=== PATIENT | female | born 1960 | race Caucasian/White ===

== ENCOUNTER 2019-04-08 23:11 | Outpatient (CLI) | payer OTHER ==
--- NOTE | 2019-04-09 03:17 | Ultrasound Report ---
Reason: LOWER ABD PAIN Procedure Date: 04/08/2019 Accession Number: [id number] / [id number] Procedure: US - Abdomen Complete CPT Code: Final Report FULL RESULT: EXAM: ABDOMEN ULTRASOUND EXAM DATE: 04/08/2019 11:59 PM. CLINICAL HISTORY: LOWER ABD PAIN. Nausea and vomiting. COMPARISON: None. TECHNIQUE: Real-time scanning was performed with static images obtained. Technically limited due to bowel gas and body habitus. FINDINGS: Liver: Diffusely increased in echotexture and increased in size measuring 23.0 cm. Main portal vein flow: Hepatopetal. Gallbladder: Normal. No stones, wall thickening, or sonographic Ortega's sign. Biliary System: Common bile duct measures 5 mm. No intrahepatic or extrahepatic ductal dilatation. Pancreas: Visualized portion is unremarkable. Kidneys: Right: 12.8 cm longitudinally. Normal. No contour-deforming mass, stones, or hydronephrosis. Left: 12.6 cm longitudinally. Normal. No contour-deforming mass, stones, or hydronephrosis. Spleen: 10.7 cm. Normal in size and echotexture. Aorta and Inferior Vena Cava: Unremarkable. Other: None. IMPRESSION: Hepatomegaly and increased echotexture of the liver which may reflect hepatic steatosis. No acute process seen. RADIA
== END 2019-04-08 23:12 | disposition home or self-care (01) ==
LOC: DI 23:11
DX: R16.0 Hepatomegaly, not elsewhere classified (principal); R10.30 Lower abdominal pain, unspecified
CPT/HCPCS: 76700

== ENCOUNTER 2019-07-29 08:16 | Outpatient (CLI) | payer OTHER ==
--- NOTE | 2019-07-29 09:27 | Ultrasound Report ---
Reason: POSTMEN BLEEDING Procedure Date: 07/29/2019 Accession Number: [id number] / [id number] Procedure: US - Pelvic w/Transvaginal CPT Code: Final Report FULL RESULT: PROCEDURE: Pelvic w/Transvaginal INDICATIONS: POSTMEN BLEEDING TECHNIQUE: Real-time scanning was performed of the pelvic organs, with image documentation. Additional endovaginal scanning was necessary due to incomplete visualization of the adnexal and endometrial structures by transabdominal scanning. COMPARISON: Ultrasound abdomen 04/08/2019. FINDINGS: Transabdominal scanning: Limited scanning through the kidneys shows no hydronephrosis. No pathologic free abdominal or pelvic fluid. Endovaginal scanning: Uterus: Uterus is normal in size at 6.7 x 2.6 x 4.2 cm. The endometrium measures 7 mm in combined thickness. It is mildly heterogeneous in appearance. Ovaries: Right ovary measures 23 x 17 x 20 mm. Arterial and venous flow are identified. Left ovary is not visualized. IMPRESSION: Mildly thickened, heterogeneous appearance of the endometrium, greater than expected in a postmenopausal patient with bleeding. 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 Reviewed by: Sherron Nguyen MD on 07/29/2019 9:25 AM PDT Approved by: Sherron Nguyen MD on 07/29/2019 9:25 AM PDT Station ID: [id number]
== END 2019-07-29 08:17 | disposition home or self-care (01) ==
LOC: DI 08:16
PROVIDERS: ATTEND Family Medicine
DX: R93.89 Abnormal findings on diagnostic imaging of other specified body structures (principal)
CPT/HCPCS: 76830; 76856

== ENCOUNTER 2020-11-01 14:20 | Outpatient (CLI) | payer OTHER ==
--- NOTE | 2020-11-02 10:55 | Ultrasound Report ---
PROCEDURE: Pelvic w/Transvaginal INDICATIONS: POST MENOPAUSAL BLEEDING TECHNIQUE: Real-time scanning was performed of the pelvic organs, with image documentation. Additional endovagi nal scanning was necessary due to incomplete visualization of the adnexal and endometrial structures by transabdominal scanning. COMPARISON: Pelvic ultrasound with stress vaginal exam, 07/29/2019. FINDINGS: No pathologic free abdominal or pelvic fluid. Uterus: Uterus is anteverted measuring 8.5 x 3.0 x 5.1 cm. The endometrium measures 4.9 mm in combi ina thickness. There is an IUD in place. Ovaries: Right ovary measures 2.6 x 1.4 x 1.7 cm with an estimated volume of 3.2 mL. Left ovary samuel ures 2.5 x 1.6 x 1.6 cm with an estimated volume of 3.2 mL. There is a 1.6 x 1.1 x 1.1 cm echogenic f ocus in the right ovary, which was not visualized on the last exam. IMPRESSION: 1. The endometrium is at upper limits of normal in thickness for a postmenopausal woman. 2. A 1.6 x 1.1 x 1.1 cm echogenic focus in the right ovary, probably a hemorrhagic cyst. A follow-up ultrasound is suggested in 6 weeks. Reviewed by: Ivette Potts MD on 11/02/2020 10:54 AM PDT Approved by: Ivette Potts MD on 11/02/2020 10:54 AM PDT Station ID: [id number]
== END 2020-11-01 14:21 | disposition home or self-care (01) ==
LOC: DI 14:20
PROVIDERS: ATTEND Family Medicine
DX: N95.0 Postmenopausal bleeding (principal); R93.89 Abnormal findings on diagnostic imaging of other specified body structures

== ENCOUNTER 2021-01-21 13:12 | Outpatient (CLI) | payer OTHER ==
--- NOTE | 2021-01-22 08:19 | Mammography Report ---
BILATERAL DIGITAL SCREENING MAMMOGRAM 3D/2D: 01/21/2021 CLINICAL: Baseline exam. Routine screening. No prior exams were available for comparison. The tissue of both breasts is heterogeneously dense. T his may lower the sensitivity of mammography. There is an oval equal density mass with a circumscribed margin in the right breast at 11 o'clock ant erior depth. No other significant masses, calcifications, or other findings are seen in either breast. IMPRESSION: INCOMPLETE: NEEDS ADDITIONAL IMAGING EVALUATION The oval equal density mass in the right breast is indeterminate. Mediolateral and spot compression views as well as additional views with possible ultrasound are recommended. This exam was interpreted at Station ID: [id number]. NOTE: For mammograms, a report in lay terms will be sent to the patient. Approximately 15% of breast malignancies will not be visualized mammographically. In the management of a palpable breast mass, a negative mammogram must not discourage biopsy of a clinically suspicious lesion. Electronically Signed By: João Fowler M.D. ddp/penrad:01/21/2021 15:30:04 ACR BI-RADS Category 0: Incomplete 3340F PARENCHYMAL PATTERN: (D) - The breast(s) demonstrate(s) heterogeneously dense fibroglandular parenchy ma. BI-RADS CATEGORY: (0) - 0 Mammo and US [id number] Immediate follow-up LATERALITY: (B)
== END 2021-01-21 13:13 | disposition home or self-care (01) ==
LOC: DI 13:12
DX: Z12.31 Encounter for screening mammogram for malignant neoplasm of breast (principal); R92.8 Other abnormal and inconclusive findings on diagnostic imaging of breast

== ENCOUNTER 2021-04-02 09:51 | Outpatient (CLI) | payer OTHER ==
--- NOTE | 2021-04-02 13:31 | Ultrasound Report ---
PROCEDURE: Pelvic w/Transvaginal INDICATIONS: POST MENOPAUSAL BLEEDING TECHNIQUE: Real-time scanning was performed of the pelvic organs, with image documentation. Additiona l endovaginal scanning was necessary due to incomplete visualization of the adnexal and endometrial s tructures by transabdominal scanning. COMPARISON: Pelvic ultrasound, 07/29/2019 and 11/01/2020. FINDINGS: Uterus: Uterus is normal in size measuring 7.2 x 3.0 x 5.0 cm. Uterus demonstrates coarse echotexture . Endometrium measures 7.1 mm in thickness. Ovaries: Right ovary measures 2.2 x 1.1 x 1.9 cm with an estimated volume of 2.4 cc. Left ovary measu res 1.8 x 1.2 x 1.4 cm with an estimated volume of 1.5 cc. There is a 0.9 x 0.8 x 1.0 cm cyst in the right ovary, decreased in size compared to last exam (previously 1.6 x 1.1 x 1.1 cm on 11/01/2020). IMPRESSION: 1. Endometrium is thickened measuring 7.1 mm for a postmenopausal woman. Differential diagnoses inclu de endometrial hyperplasia versus endometrial carcinoma. In this patient with postmenopausal bleeding , recommend tissue diagnosis. 2. There is a involuting cyst in the right ovary, decreased in size since the last exam. Reviewed by: Ivette Potts MD on 04/02/2021 1:30 PM PST Approved by: Ivette Potts MD on 04/02/2021 1:30 PM PST Station ID: [id number]
== END 2021-04-02 09:52 | disposition home or self-care (01) ==
LOC: DI 09:51
PROVIDERS: ATTEND Family Medicine
DX: N95.0 Postmenopausal bleeding (principal); N83.201 Unspecified ovarian cyst, right side; R93.89 Abnormal findings on diagnostic imaging of other specified body structures

== ENCOUNTER 2021-07-12 15:57 | Outpatient (CLI) | payer OTHER ==
--- NOTE | 2021-07-12 16:48 | SLEEP CARE CONSULTATION ---
Information from patient questionnaire entered by Abhijit Shah MA. I have reviewed and concur with the information entered by Abhijit Shah MA. This document represents the service I personally performed and the decisions made by , Amy Salas ARNP. History of Present Illness Service Date and Time: 07/12/2021 1557 Reason for Visit: New patient (ONSET 02/23/2006, ON CPAP, RESMED, ), Other (needs new equiptment) Date of Onset: years Usual bedtime: depends Time it takes to fall asleep: depends Snores at night: No Observed to quit breathing while asleep: No Sleeps alone due to snoring: No Number of times waking at night: pending dogs Reasons for waking at night: reports: Pain, Bathroom Toss, Turn, or Twitch while sleeping: Yes Usually gets out of bed at: [id number] Feels refreshed in the morning: No Morning headache: No Sleepy or fatigued during the day: Yes Ever fallen asleep while driving: No Takes day naps: No Dreams during day naps: No Prior sleep studies: Yes Year and Where: [facility] sleep [place] 2003 Type of Sleep Study: Polysomnography Additional HPI information: CAMI LUJAN was previously diagnosed to have moderate, AHI 23.5, obstructi ve sleep apnea-hypopnea syndrome and comes in today to establish care for CPAP therapy. Patient had a sleep study in 2003 at [facility] ([facility]) and we were able to obtain a copy of that sleep study from her [employer] company. - Parasomnia Symptoms Ever been unable to move upon waking from sleep: No Walks in sleep: No Talks in sleep: Yes Ever acted out dreams in sleep: Yes Ever felt weak in the knees when startled or emotional: No Bothered by creepy, crawly, restless sensations in legs: Yes Problems with memory or concentration: Yes CPAP Compliance Data - Data Reviewed with Patient Average duration of nightly device use: 9 hours 45 minutes Compliance rate %: 100 (180 days; used 180/180) Current pressure setting (cmH2O): 13 Average residual AHI: 1.4 Central apnea: 0.0 Obstructive apnea: 1.0 Average large leak: 16.7 L/min Compliance data discussion: She has been using [employer] for her supplies but has not gotten any new supplies in last couple years. She has been using nasal pillows mask, ResMed P10. She states she cannot sleep without it. She does not change the cushion very often. Subjective Patient concerns: denies: aerophagia, mask discomfort, air blowing in eyes, mask leak noise, condensation in mask/hose, nasal congestion, dry mouth, nose, throat, epistaxis, other Observed to snore while using device: No Current pressure setting perceived as: comfortable On therapy, patient: reports: sleeping better, awakening more refreshed, being more awake and alert during the day, more rested overall. denies: drowsiness while driving Initial [place] Sleepiness Scale score: 2 (06/2021) Past Medical History Past Medical History: reports: Diabetes, Arthritis, Insulin resistance, Hypothyroidism, Anxiety, Depression Social History The patient's occupation is a [employer]. Patient is and lives in . Have you smoked in the past 12 months: No Cigarettes per day (20/pack): 10 Quit date: 4 years Alcohol use: Yes Alcohol amount and frequency: 2 x weekly Caffeine use: Yes Caffeine amount and frequency: 1-2 daily Family History Family history of sleep disordered breathing: No Family Hx Sleep Apnea: Father: Snoring, Sibling: Snoring Allergies and Home Medications Drug allergies reviewed: Yes (tetracycline) Home medication list reviewed: Yes Allergy and home medication list: Allergies No Known Drug Allergies Allergy (Verified 11/26/20 15:25) Medications: Venlafaxine, total 375 mg a day Atorvastatin Tylenol #3 Levothyroxine Metformin Victoza Ibuprofen, prn Empagliflozin Cyclobenzaprine, prn Clobetasol 0.05% external solution, prn Review of Systems Weight gain over past 5 years: 20 lbs in last 1.5 yrs Cardiovascular: denies: high blood pressure Gastrointestinal: reports: abdominal pain (hernia; has had 2 surgeries, may be torn again). denies: heartburn Urinary: reports: incontinence Neurological: denies: headaches Psychiatric: reports: anxiety, depression Ear/Nose/Throat: reports: tonsillectomy, wisdom teeth removed Endocrine: reports: thyroid disease Musculoskeletal: reports: joint pain (torn rotator cuffs bilateral; 3 repairs on right side) Physical Exam Vital signs obtained and entered by: Coleen SHAH CMA [facility] Blood Pressure: 126/76 (resp 16, pulse 75, right, ) Heart Rate: 77 O2 Saturation: 96 (n95) Height: 5 ft 6 in Weight: 256 lb Body Mass Index: 41.3 BMI Classification: Morbidly Obese Neck circumference: 15.5 (inches) Heart: regular rate and rhythm Lungs: clear bilaterally Impression and Plan 1. Obstructive Sleep Apnea-Hypopnea Syndrome, moderate, with excellent treatment compliance and good apnea control. On CPAP therapy, the patient has better sleep quality and is more rested overall. Patient denies problems with oral dryness, nasal congestion, epistaxis, skin irritation or aerophagia. Patient does need to be able to get supplies. She has not been able to get some for a long time but she has dealt with [facility] in the past. I will write a prescription to update supplies and we will fax this to her DME. Patient is compliant and will follow up we will follow up with her next year. Patient voiced understanding and agreement. Patient's apnea severity and rationale for treatment to reduce apnea, improve sleep quality and reduce cardiovascular and cerebrovascular events was reviewed. I also reviewed the benefit of consistent device use of CPAP for diabetes, depression and anxiety. 2. Obesity, unspecified. Currently patients BMI is 41.3. Obesity increases the risk of apnea, CPAP pressure requirements and overall health risks especially cardiovascular and diabetes. Thus patient is advised to lose weight. Weight loss can be done with reducing portion size, reducing refined foods and balancing content with vegetables, fruit and whole grain foods. In addition, patient encouraged to get regular exercise. The patient's CPAP pressure range should accommodate some weight loss. * Continue auto CPAP pressure at 13 cmH2O * Update supplies * Notify me if snoring with mask or feeling that the pressure is too much or too little * Attempt to lose weight * Call this office if any problems using CPAP * Return for follow up in 1 year, or sooner if concerns arise Counseling Topics: Spare mask, Weight loss health impact Visit Type: In Office Time Spent with Patient (minutes): 43 Provider Statement: I spent 100% of the Face to Face Visit with the patient with greater than 50% spent counseling the patient and coordination of care.
[2021-07-12 16:49] VITALS: BP 126/76
== END 2021-07-12 15:58 | disposition home or self-care (01) ==
LOC: SC 15:57
PROVIDERS: ATTEND Nurse Practitioner Family
DX: G47.33 Obstructive sleep apnea (adult) (pediatric) (principal); E66.01 Morbid (severe) obesity due to excess calories; Z68.41 Body mass index [BMI] 40.0-44.9, adult
CPT/HCPCS: 99203; 99212

== ENCOUNTER 2022-08-14 09:31 | Outpatient (CLI) | payer OTHER ==
--- NOTE | 2022-08-14 09:58 | SLEEP CARE CONSULTATION ---
Information from patient questionnaire entered by Malcolm Kaye. I have reviewed and concur with the information entered by Malcolm Kaye. This document represents the service I personally performed and the decisions made by me, Amy Salas ARNP. History of Present Illness Service Date and Time: 08/14/2022 0931 Previous diagnosis: Moderate, Obstructive Sleep Apnea-Hypopnea Syndrome AHI: 23.5 (in 2003) Reason for follow up: annual (LAST SEEN 06/2021) Equipment type: CPAP (RESMED 10, s/u 07/16/2017) Equipment obtained from: Other ([facility], has not got any calls/supplies this last year) Mask style: Nasal pillows Backup mask available: No (needs to get supplies) Last cushion change: 1 year Prior sleep studies: Yes Year and Where: [facility] sleep [place] 2003 Type of Sleep Study: Polysomnography HPI additional information: CAMI LUJAN was diagnosed to have moderate, AHI 23.5, obstructive sleep apnea-hypopnea syndrome and returned today for CPAP therapy annual follow-up. 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 denies: aerophagia, mask discomfort, mask leak noise, nasal congestion, dry mouth, nose, throat, epistaxis Observed to snore while using device: No Current pressure setting perceived as: comfortable On therapy, patient: reports: sleeping better, awakening more refreshed, being more awake and alert during the day, more rested overall. denies: drowsiness while driving Initial [place] Sleepiness Scale score: 2 (06/2021) Current [place] Sleepiness Scale score: 1 (08/14/22) Allergies and Home Medications Known drug allergies: No Drug allergies reviewed: Yes Home medication list reviewed: Yes (started Trulicity; stopped Victoza and Jardiance) Allergy and home medication list: Allergies No Known Drug Allergies Allergy (Verified 08/13/22 16:10) Review of Systems Review of systems same as previous: Yes (osteoarthritis) Physical Exam Vital signs obtained and entered by: MALCOLM Partida MA Blood Pressure: 134/76 (LEFT ARM) Cuff size: long Heart Rate: 83 O2 Saturation: 98 Height: 5 ft 6 in Weight: 259 lb 3.2 oz Weight change since last visit: 3 lb gain Body Mass Index: 41.8 BMI Classification: Morbidly Obese Impression and Plan 1. Obstructive Sleep Apnea-Hypopnea Syndrome, moderate, with good treatment compliance and good apnea control. On CPAP therapy, the patient has better sleep quality and is more rested overall. Patient has significant improvement of their sleep apnea and is satisfied with current CPAP therapy. Patient has a ResMed air sense 10 that she received in June 2017. She is eligible to update her device. The patients CPAP is over 5 years old and of reasonable use. Thus, the CPAP will be updated. A DWO prescription will be made. Compliance guidelines for new device and follow up discussed. Patient's apnea severity and rationale for treatment to reduce apnea, improve sleep quality and reduce cardiovascular and cerebrovascular events was reviewed. I also reviewed the benefit of consistent device use of CPAP for diabetes, depression and anxiety. 2. Obesity, unspecified. Currently patients BMI is 41.8. Obesity increases the risk of apnea, CPAP pressure requirements and overall health risks especially cardiovascular and diabetes. Thus patient is advised to lose weight. * Continue CPAP pressure at 13 cmH2O * Update device * Update supply prescription * Notify me if snoring with mask or feeling that the pressure is too much or too little * Attempt to lose weight * Call this office if any problems using CPAP * Return for follow up one month after obtaining new device, or sooner if concerns arise Counseling Topics: Spare mask, Weight loss health impact Prescriptions: Auto CPAP, Device supplies Visit Type: In Office Time Spent with Patient (minutes): 21 Provider Statement: I spent 100% of the Face to Face Visit with the patient with greater than 50% spent counseling the patient and coordination of care.
[2022-08-14 10:04] VITALS: BP 134/76
== END 2022-08-14 09:32 | disposition home or self-care (01) ==
LOC: SC 09:31
PROVIDERS: ATTEND Nurse Practitioner Family
DX: G47.33 Obstructive sleep apnea (adult) (pediatric) (principal); E66.01 Morbid (severe) obesity due to excess calories; Z68.41 Body mass index [BMI] 40.0-44.9, adult
CPT/HCPCS: 99212; 99213

== ENCOUNTER 2023-05-23 23:19 | Outpatient (CLI) | payer OTHER | END 2023-05-23 23:59 | disposition EMS.NT | LOC: EMS 23:19 | DX: F10.929 Alcohol use, unspecified with intoxication, unspecified (principal) ==

== ENCOUNTER 2023-09-27 13:29 | Emergency (ER) | payer OTHER ==
[2023-09-27 14:05] LABS: BASOPHILS # (AUTO) 0.1 10^3/uL (0.0-0.1); BASOPHILS % (AUTO) 1.3 %; EOSINOPHILS # (AUTO) 0.1 10^3/uL (0.0-0.7); EOSINOPHILS % (AUTO) 2.1 %; HCT - HEMATOCRIT 46.5 % (37.0-47.0); HGB - HEMOGLOBIN 15.6 g/dL (12.0-16.0); LYMPHOCYTES # (AUTO) 2.4 10^3/uL (1.5-3.5); LYMPHOCYTES % (AUTO) 51.3 %; MEAN CORPUSCULAR HEMOGLOBIN 29.5 pg (27.0-31.0); MEAN CORPUSCULAR HGB CONC 33.5 g/dL (32.0-36.0); MEAN CORPUSCULAR VOLUME 88.1 fL (81.0-99.0); MEAN PLATELET VOLUME 9.7 fL (7.9-10.8); MONOCYTES # (AUTO) 0.4 10^3/uL (0.0-1.0); MONOCYTES % (AUTO) 8.8 %; NEUTROPHILS # (AUTO) 1.7 10^3/uL (1.5-6.6); NEUTROPHILS % (AUTO) 36.3 %; PLT - PLATELET COUNT 177 10^3/uL (130-450); RED BLOOD COUNT 5.28 10^6/uL (4.20-5.40); RED CELL DISTRIBUTION WIDTH 12.6 % (12.0-15.0); WHITE BLOOD COUNT 4.7 x10^3/uL (4.8-10.8)
[2023-09-27 14:18] LABS: ALBUMIN 4.9 g/dL (3.2-5.5); ALBUMIN/GLOBULIN RATIO 1.5 (1.0-2.2); BILIRUBIN,TOTAL 1.2 mg/dL (0.2-1.0); CALCIUM 11.6 mg/dL (8.5-10.3); CREATININE 0.5 mg/dL (0.6-1.3); POTASSIUM 4.2 mmol/L (3.5-4.5); TOTAL PROTEIN 8.1 g/dL (6.4-8.9)
--- NOTE | 2023-09-27 14:32 | XRAY Report ---
PROCEDURE: Chest 1V INDICATIONS: Chest pain TECHNIQUE: One view of the chest was acquired. COMPARISON: None. FINDINGS: Surgical changes and devices: None. Lungs and pleura: No pleural effusions or pneumothorax. Lungs are clear. Mediastinum: Mediastinal contours appear normal. Heart size is normal. Bones and chest wall: No suspicious bony lesions. Overlying soft tissues appear unremarkable. IMPRESSION: No acute cardiopulmonary process. Reviewed by: Getachew Reynaga MD on 09/27/2023 2:30 PM PDT Approved by: Getachew Reynaga MD on 09/27/2023 2:30 PM PDT Station ID: [id number]
[2023-09-27 14:38] LABS: TROPONIN I HIGH SENSITIVITY 4.8 ng/L (2.3-14.8)
[2023-09-27] MEDS ORDERED: iohexoL-300 100 ML VIAL ONE (15:12)
--- NOTE | 2023-09-27 15:16 | ED Physician Documentation ---
History of Present Illness - Stated complaint Stated Complaint: CHEST/NECK PX - Chief complaint Chief Complaint: Cardiac - History obtained from History obtained from: Patient - History of Present Illness Pain level max: 5 Pain level now: 0 - Additonal information Additional information: Patient is a 63-year-old female who presents to the emergency department complaining of intermittent chest pain since yesterday. She states that it feels like a pressure in the center of her chest and epigastric area. Radiates up into her jaw. Also goes into her back occasionally. Last for about 15 to 20 minutes at a time. No change with exertion. Does seem to be worse when she eats. No change with breathing. No change with coughing. Patient denies any cardiac history. No history of ACS. She states she still has her gallbladder. No medication changes.Patient is a former smoker. Does not drink. Review of Systems Constitutional: denies: Fever, Chills Cardiac: denies: Palpitations GI: denies: Vomiting, Diarrhea Skin: denies: Rash Musculoskeletal: denies: Neck pain, Back pain Neurologic: denies: Headache PD PAST MEDICAL HISTORY - Past Medical History Past Medical History: Yes Cardiovascular: Hypertension, High cholesterol Endocrine/Autoimmune: Type 2 diabetes Psych: Depression, Anxiety Musculoskeletal: Osteoarthritis - Past Surgical History General: Other Ortho: Rotator cuff repair, Shoulder arthroplasty - Present Medications Home Medications: Ambulatory Orders Medication Instructions Recorded Confirmed Acetaminophen/Cod 300/30 [Tylenol 2 each PO Q4-6H 11/26/20 08/14/22 #3] Alprazolam [Xanax] 0.5 - 1 mg PO DAILY PRN 11/26/20 08/14/22 Atorvastatin Calcium 40 mg PO DAILY 11/26/20 08/14/22 Buspirone HCl 10 mg PO QID PRN 11/26/20 08/14/22 Cholecalciferol (Vitamin D3) 125 mcg PO DAILY 11/26/20 08/14/22 [Vitamin D3] Clobetasol 0.05% Oint [Temovate 30 applic TOP DAILY 11/26/20 08/14/22 0.05% Oint] Empagliflozin [Jardiance] 25 mg PO DAILY 11/26/20 08/14/22 Fluticasone [Flonase] 1 sprays JENIFER DAILY 11/26/20 08/14/22 Ibuprofen 200 mg PO Q6H 11/26/20 08/14/22 Levothyroxine Sodium 175 mcg PO DAILY 11/26/20 08/14/22 [Levothyroxine] Liraglutide [Victoza 2-Flaco] 1.8 mg SQ DAILY 11/26/20 08/14/22 Metformin HCl [Metformin ER 1,000 mg PO BID 11/26/20 08/14/22 Osmotic] Venlafaxine ER [Effexor ER] 75 mg PO DAILY 11/26/20 08/14/22 Venlafaxine HCl [Effexor Xr] 300 mg PO DAILY 11/26/20 08/14/22 Dulaglutide [Trulicity] See Rx Instructions .ROUTE .COMPLEX 08/14/22 08/14/22 - Allergies Allergies/Adverse Reactions: Allergies Allergy/AdvReac Type Severity Reaction Status Date / Time tetracycline AdvReac Respiratory Verified 09/27/23 13:51 - Social History Does the pt smoke?: No Smoking Status: Former smoker PD ED PE NORMAL - Vitals Vital signs reviewed: Yes - General General: Alert and oriented X 3, No acute distress - HEENT HEENT: Moist mucous membranes - Neck Neck: Supple, no meningeal sign - Cardiac Cardiac: RRR, Strong equal pulses - Respiratory Respiratory: No respiratory distress, Clear bilaterally - Abdomen Abdomen: Soft, Non distended, Other (Tender palpation epigastric and right upper quadrant. No peritoneal signs.) - Back Back: No CVA TTP, No spinal TTP - Derm Derm: Warm and dry - Extremities Extremities: No edema, No calf tenderness / cord - Neuro Neuro: Alert and oriented X 3 - Psych Psych: Normal mood, Normal affect Results - Vitals Vitals: Vital Signs - 24 hr 09/27/23 09/27/23 09/27/23 13:46 15:46 16:44 Temperature 36.1 C L Heart Rate 83 81 Respiratory 17 16 Rate Blood Pressure 138/87 H 146/67 H O2 Saturation 97 94 09/27/23 18:00 Temperature Heart Rate 77 Respiratory 16 Rate Blood Pressure 122/75 O2 Saturation 96 Oxygen O2 Source Room air - EKG (time done) 1339 EKG releavant findings:: EKG personally interpreted by author of this note. Relevant findings are: Rate: Rate (enter#) (82) Rhythm: NSR [place]ink[place]: Normal Intervals: Normal FL QRS: Normal Ischemia: Normal ST segments, Q waves (v1-2) - Labs Labs: Laboratory Tests 09/27/23 09/27/23 09/27/23 13:58 13:58 17:17 WBC 4.7 L RBC 5.28 Hgb 15.6 Hct 46.5 MCV 88.1 MCH 29.5 MCHC 33.5 RDW 12.6 Plt Count 177 MPV 9.7 Neut # (Auto) 1.7 Lymph # (Auto) 2.4 [place] # (Auto) 0.4 Eos # (Auto) 0.1 Baso # (Auto) 0.1 Absolute Nucleated RBC 0.00 Nucleated RBC % 0.0 Sodium 133 L Potassium 4.2 Chloride 98 L Carbon Dioxide 27 Anion Gap 8.0 BUN 15 Creatinine 0.5 L Estimated GFR (MDRD) 125 Glucose 191 H Calcium 11.6 H Total Bilirubin 1.2 H AST 147 H ALT 149 H Alkaline Phosphatase 82 Troponin I High Sens 4.8 5.0 Total Protein 8.1 Albumin 4.9 Globulin 3.2 Albumin/Globulin Ratio 1.5 Lipase 23 - Rads (name of study) cxr Relevant Findings:: Final report received, See rad report CT abdomen pelvis Relevant Findings:: Final report received, See rad report Right upper quadrant ultrasound Relevant Findings:: Final report received, See rad report PD Medical Decision Making - ED course Complexity details: reviewed results, re-evaluated patient, considered differential (No ST elevation ID, no aortic dissection, no PE, no tension pneumothorax, no aortic aneurysm), d/w patient ED course: Patient with epigastric/right upper quadrant/chest pain. Possible GERD versus gastritis? Possible biliary colic. An ultrasound was performed and a CT abdomen pelvis performed when her LFTs came back elevated. She does have a fatty liver, but no evidence of gallbladder disease. Given a dose of pain medication here and pain has fully resolved. Negative high sensitive troponin x 2. Pain does not change with exertion. Not typical for cardiac pain. No acute findings on EKG. Recommend a cardiac stress test with her doctor. May benefit from an endoscopy/EGD as well. No evidence of PE or aortic dissection. Patient will follow-up with her doctor for further care and return if she wo rsens. Patient counseled regarding signs and symptoms for which I believe and urgent re-evaluation would be necessary. Patient with good understanding of and agreement to plan and is comfortable going home at this time This document was made in part using voice recognition software. While efforts are made to proofread this document, sound alike and grammatical errors may occur. Departure - Departure Disposition: 01 Home, Self Care Clinical Impression: Chest pain Qualifiers: Chest pain type: unspecified Qualified Code(s): R07.9 - Chest pain, unspecified Condition: Good Instructions: ED Chest Pain Atypical Unkn Cause Follow-Up: Shanda Gonzales MD [Primary Care Provider] - Within 1 week Comments: The cause of your symptoms is unclear today. It is recommended that you follow- up with your doctor this week for a cardiac stress test and further evaluation. As we discussed your liver function tests are mildly elevated and you do have evidence of fatty infiltration into your liver which could be the cause for this. Your calcium levels are also mildly high and should be rechecked with your doctor. Your calcium was 11.6 today. Your bilirubin was 1.2, AST 147, ALT 149. Please return if you worsen. PROCEDURE: Abdomen Limited INDICATIONS: RUQ pain, elevated LFTs TECHNIQUE: Real-time focused scanning was performed of the abdomen, with image documentation. COMPARISONS: CT of abdomen and pelvis dated 09/27/2023. FINDINGS: Liver: Liver is enlarged and show diffusely increased liver parenchymal echotext ure. No solid hepatic lesion. Gallbladder: No gallstones, sludge, wall thickening or pericholecystic edema. Biliary ducts: Intrahepatic bile ducts are non-dilated. Extrahepatic bile duct caliber measures 4 mm. Normal is 6-7 mm or less in diameter, or 10 mm or less post-cholecystectomy. Pancreas: Visualized portions of the pancreas are sonographically normal. Right kidney: Normal in size and echotexture. Right kidney measures 12.1 cm long. No hydronephrosis or nephrolithiasis. No solid masses. No complex renal cystic lesions which require follow-up. IVC: Intrahepatic inferior vena cava is patent. Miscellaneous: No free abdominal fluid. IMPRESSION: 1. Hepatomegaly and hepatic steatosis. No discrete hepatic lesion. 2. Normal-appearing gallbladder. No biliary ductal dilatation. PROCEDURE: Abdomen/Pelvis W INDICATIONS: epigastric pain CONTRAST: 100ml omni 300 TECHNIQUE: After the administration of intravenous contrast, a CT scan of the abdomen and pelvis was performed. Images were recorded and evaluated at appropriate window settings. Reformats: coronal and sagittal. For radiation dose reduction, the following was used: automated exposure control, adjustment of mA and/or kV according to patient size. COMPARISON: Pelvic ultrasound dated 04/02/2021. FINDINGS: Image quality: Diagnostic. Lower chest: Dependent atelectasis in posterior aspect of bilateral lung bases are seen.. Liver: No solid mass. Moderate hepatic steatosis is seen. Mild hepatomegaly. Gallbladder: No radiopaque stones or wall thickening. Biliary tree: No intrahepatic or extrahepatic dilation, accounting for age. Spleen: No splenomegaly. Pancreas: No pancreatic ductal dilation. Adrenals: No adrenal nodule. Kidneys and ureters: No hydronephrosis. No renal cystic lesion which requires follow up. No solid mass. Stomach, bowel and peritoneum: There is no bowel obstruction. No gastric or small bowel wall thickening. No mesenteric fat stranding. Moderate fecal stasis throughout the colon is seen. No abscess collection. No free fluid or free air. Lymph nodes: No central or retroperitoneal adenopathy. Vessels: No infrarenal aortic aneurysm. Patent portal vein. Moderate atherosclerotic calcifications in the abdominal aorta is seen. PELVIS Reproductive organs: Unremarkable. Bladder: No abnormal wall thickening, accounting for underdistention. Pelvic lymph nodes: No pelvic adenopathy by size criteria. Bones: No aggressive osseous abnormality. Other: Small ventral hernias are seen containing fat only. No significant inguinal hernia. IMPRESSION: 1. Hepatomegaly and moderate hepatic steatosis. No discrete hepatic lesion. 2. No bowel obstruction or abnormal bowel wall thickening. No free fluid of free air. Moderate constipation. 3. Normal-appearing gallbladder. No biliary ductal dilatation. PROCEDURE: Chest 1V INDICATIONS: Chest pain TECHNIQUE: One view of the chest was acquired. COMPARISON: None. FINDINGS: Surgical changes and devices: None. Lungs and pleura: No pleural effusions or pneumothorax. Lungs are clear. Mediastinum: Mediastinal contours appear normal. Heart size is normal. Bones and chest wall: No suspicious bony lesions. Overlying soft tissues appear unremarkable. IMPRESSION: No acute cardiopulmonary process. Forms: PCP List Discharge Date/Time: 09/27/23 18:11
[2023-09-27] MEDS: HYDROmorphone 1 MG/ML CARPUJECT IVP STA (15:32)
[2023-09-27] MEDS: iohexoL-300 100 ML VIAL IVP ONE (15:33)
--- NOTE | 2023-09-27 15:48 | CT Report ---
PROCEDURE: Abdomen/Pelvis W INDICATIONS: epigastric pain CONTRAST: 100ml omni 300 TECHNIQUE: After the administration of intravenous contrast, a CT scan of the abdomen and pelvis was performed. Images were recorded and evaluated at appropriate window settings. Reformats: coronal and sagittal. F or radiation dose reduction, the following was used: automated exposure control, adjustment of mA and /or kV according to patient size. COMPARISON: Pelvic ultrasound dated 04/02/2021. FINDINGS: Image quality: Diagnostic. Lower chest: Dependent atelectasis in posterior aspect of bilateral lung bases are seen.. Liver: No solid mass. Moderate hepatic steatosis is seen. Mild hepatomegaly. Gallbladder: No radiopaque stones or wall thickening. Biliary tree: No intrahepatic or extrahepatic dilation, accounting for age. Spleen: No splenomegaly. Pancreas: No pancreatic ductal dilation. Adrenals: No adrenal nodule. Kidneys and ureters: No hydronephrosis. No renal cystic lesion which requires follow up. No solid mas s. Stomach, bowel and peritoneum: There is no bowel obstruction. No gastric or small bowel wall thickeni ng. No mesenteric fat stranding. Moderate fecal stasis throughout the colon is seen. No abscess colle ction. No free fluid or free air. Lymph nodes: No central or retroperitoneal adenopathy. Vessels: No infrarenal aortic aneurysm. Patent portal vein. Moderate atherosclerotic calcifications i n the abdominal aorta is seen. PELVIS Reproductive organs: Unremarkable. Bladder: No abnormal wall thickening, accounting for underdistention. Pelvic lymph nodes: No pelvic adenopathy by size criteria. Bones: No aggressive osseous abnormality. Other: Small ventral hernias are seen containing fat only. No significant inguinal hernia. IMPRESSION: 1. Hepatomegaly and moderate hepatic steatosis. No discrete hepatic lesion. 2. No bowel obstruction or abnormal bowel wall thickening. No free fluid of free air. Moderate consti pation. 3. Normal-appearing gallbladder. No biliary ductal dilatation. Reviewed by: Getachew Reynaga MD on 09/27/2023 3:47 PM PDT Approved by: Getachew Reynaga MD on 09/27/2023 3:47 PM PDT Station ID: [id number]
--- NOTE | 2023-09-27 17:10 | Ultrasound Report ---
PROCEDURE: Abdomen Limited INDICATIONS: RUQ pain, elevated LFTs TECHNIQUE: Real-time focused scanning was performed of the abdomen, with image documentation. COMPARISONS: CT of abdomen and pelvis dated 09/27/2023. FINDINGS: Liver: Liver is enlarged and show diffusely increased liver parenchymal echotexture. No solid hepati c lesion. Gallbladder: No gallstones, sludge, wall thickening or pericholecystic edema. Biliary ducts: Intrahepatic bile ducts are non-dilated. Extrahepatic bile duct caliber measures 4 m m. Normal is 6-7 mm or less in diameter, or 10 mm or less post-cholecystectomy. Pancreas: Visualized portions of the pancreas are sonographically normal. Right kidney: Normal in size and echotexture. Right kidney measures 12.1 cm long. No hydronephros is or nephrolithiasis. No solid masses. No complex renal cystic lesions which require follow-up. IVC: Intrahepatic inferior vena cava is patent. Miscellaneous: No free abdominal fluid. IMPRESSION: 1. Hepatomegaly and hepatic steatosis. No discrete hepatic lesion. 2. Normal-appearing gallbladder. No biliary ductal dilatation. Reviewed by: Getachew Flynn MD on 09/27/2023 5:09 PM PDT Approved by: Getachew Flynn MD on 09/27/2023 5:09 PM PDT Station ID: [id number]
[2023-09-27 18:09] VITALS: BP 122/75; O2SAT 96
== END 2023-09-27 18:11 | disposition home or self-care (01) ==
LOC: ED 13:29
DX: R07.9 Chest pain, unspecified (principal); I10 Essential (primary) hypertension; E78.00 Pure hypercholesterolemia, unspecified; E11.9 Type 2 diabetes mellitus without complications; Z79.899 Other long term (current) drug therapy; Z79.84 Long term (current) use of oral hypoglycemic drugs; Z79.85 Long-term (current) use of injectable non-insulin antidiabetic drugs; Z87.891 Personal history of nicotine dependence
CPT/HCPCS: 36415; 71045; 74177; 76705; 80053; 83690; 84484; 85025; 93005; 96374; 99283; 99284; J1170; Q9967